=== PATIENT | female | born 1950 | race Caucasian/White ===

== ENCOUNTER 2024-01-06 06:17 | Inpatient (IN) | payer OTHER, MEDICARE ==
[2024-01-06] VITALS (8 sets, daily range): BP systolic 115–124; BP diastolic 44–66; PULSE 61–92; RESP 16–19; TEMP 97.4–98; O2SAT 90–98
[~2024-01-06] VITALS: Ht 157.5 cm; Wt 99.8 kg
[~2024-01-06 06:17] MED LIST: CELE200C PO; CETI10TA2 PO; DULA1INJ SC; FLUT250M2 IN; LANS30CA57 PO; LOSA100T25 PO; MONT-8 OR; SIMV40TA18 PO
[2024-01-06] MEDS: ceFAZolin 2 GM/D5W50ml 50 ML IV ONE (06:33)
[2024-01-06] MEDS: ACETAMINOPHEN IV 100 ML IV ONE (06:33)
[2024-01-06] MEDS ORDERED: TRANEXAMIC ACID 20 ML ONE (06:47)
[2024-01-06] MEDS: ACETAMINOPHEN IV 1000 MG/100ML (10MG/ML) IV ONE (07:00)
[2024-01-06] MEDS: CELECOXIB 100 MG CAP PO ONE (07:00)
[2024-01-06] MEDS: PREGABALIN CAPSULE 75 MG CAP PO ONE (07:00)
[2024-01-06] MEDS ORDERED: MIDAZOLAM HCL 2MG/2ML 2ml VIAL (1mg/ml) ONE (07:14)
[2024-01-06] MEDS ORDERED: fentaNYL CITRATE 100 MCG/2 ML VL ONE (07:14)
[2024-01-06] MEDS ORDERED: PROPOFOL 10 MG/ML 20 ML IV ONE ×3 (07:16→08:42)
[2024-01-06] MEDS: ceFAZolin 1GM/50ML 50 ML IV SCH (07:30)
[2024-01-06] MEDS ORDERED: MORPHINE SULFATE INJ 2 MG/ml SYRG IV PRN (07:30)
[2024-01-06] MEDS ORDERED: NITROGLYCERIN 0.4 MG SL TAB SL PRN (07:30)
[2024-01-06] MEDS ORDERED: HYDROmorphone HCL 2 MG/ML VL/or syr IV PRN ×2 (07:30→09:15)
[2024-01-06] MEDS ORDERED: ePHEDrine SULFATE 50 MG/ML AMP ONE (07:31)
[2024-01-06] MEDS: DexAMETHasone SOD PHOS 4 MG/1ML SDV INJ ONE (07:43)
[2024-01-06] MEDS: EPINEPHrine HCL 1 MG/1 ML AMP ONE (07:43)
[2024-01-06] MEDS: BUPIVACAINE 0.25% INJ 50ML VIAL ONE (08:15)
[2024-01-06] MEDS: KETOROLAC TROMETH 30 MG/ML 1ML VIAL ONE (08:15)
[2024-01-06] MEDS: VANCOMYCIN HCL 1000 MG VL ONE (08:15)
[2024-01-06] MEDS: MORPHINE SULF PF 5 MG/10 ML VIAL ONE (08:15)
[2024-01-06] MEDS: ROPIVACAINE 0.5% (5MG/ML) 20ML AMPULE IJ ONE (08:18)
[2024-01-06] MEDS ORDERED: MEPERIDINE HCL (25 MG/ML) 1ML VIAL ONE (08:44)
[2024-01-06] MEDS ORDERED: MEPERIDINE HCL (25 MG/ML) 1ML VIAL IV PRN (09:15)
[2024-01-06] MEDS: Fluticasone-Salmeterol (Advair Diskus 250/50) INHALER IN SCH (10:00)
[2024-01-06] MEDS: CETIRIZINE HCL 10 MG PO SCH (10:00)
[2024-01-06] MEDS: ENOXAPARIN SOD 40 MG/0.4 ML SYRINGE SC SCH (11:50)
[2024-01-06] MEDS: DOCUSATE SOD 100 MG CAP PO SCH (11:51)
[2024-01-06] MEDS: SODIUM CHLOR 0.9% PF (SALINE LOCK) 10ML VIAL/SYR IV SCH (14:11)
[2024-01-06] MEDS: ONDANSETRON HCL 4 MG/2 ML VIAL IV ONE (15:43)
[2024-01-06] MEDS: ATORVASTATIN 20 MG TAB PO SCH (21:50)
[2024-01-06] MEDS: LACTATED RINGER'S 1,000 ML IV SCH (21:53)
[2024-01-06] MEDS: ONDANSETRON HCL 4 MG/2 ML VIAL IV PRN (22:45)
[2024-01-07] VITALS (8 sets, daily range): BP systolic 108–125; BP diastolic 41–51; PULSE 69–99; RESP 15–19; TEMP 97.9–101.1; O2SAT 90–97
[2024-01-07] MEDS: MONTELUKAST SODIUM 10 MG TAB PO SCH (06:51)
[2024-01-07] MEDS: OXYCODONE W/ ACETAMINOPHEN 5/325MG TABLET PO PRN (06:51)
[2024-01-07] MEDS: LOSARTAN POTASSIUM 50 MG TAB PO SCH (06:52)
[2024-01-07] MEDS: hydroCHLOROthiazide 25 MG TAB PO SCH (06:54)
[2024-01-07] MEDS: PANTOPRAZOLE 40 MG TAB PO SCH (06:55)
[2024-01-07] MEDS: ACETAMINOPHEN 325 MG TAB PO PRN (13:08)
== END 2024-01-07 19:35 | DRG 470 ==
LOC: SUR 06:17 → OVERFLOW 07:26 → CENTRAL 10:05
PROVIDERS: ADMIT Orthopaedic Surgery Adult Reconstructive Orthopaedic Surgery; ATTEND Orthopaedic Surgery Adult Reconstructive Orthopaedic Surgery
PROC: 8E0YXBZ Computer Assisted Procedure of Lower Extremity (ICD-10-PCS; 2024-01-06)
PROC: 0SRD0J9 Replacement of Left Knee Joint with Synthetic Substitute, Cemented, Open Approach (ICD-10-PCS; principal; 2024-01-06 07:16)
DX: M17.12 Unilateral primary osteoarthritis, left knee (principal)
CPT/HCPCS: 73560; 82962; 86850; 86900; 86901; 97110; 97116; 97163; 97530; G0378; J0131; J0171; J1100; J1885; J2250; J2405; J2704; J3490